=== PATIENT | female | born 1955 | race Two or more races ===

== ENCOUNTER 2022-10-15 08:28 | Inpatient (IN) | payer OTHER ==
[~2022-10-15] VITALS: Ht 160 cm; Wt 66.5 kg
[2022-10-15 05:36] VITALS: BP 136/94
[2022-10-15 08:54] LABS: Basophils # (auto) 0.1 10 ^3/uL (0-0.2); Basophils % (auto) 0.7 % (0.0-2.0); Eosinophils # (auto) 0.5 10 ^3/uL (0-0.8); Eosinophils % (auto) 5.3 % (0.0-7.0); Hematocrit 42.1 % (36.0-46.0); Hemoglobin 14.3 g/dL (12.2-16.2); Lymphocytes # (auto) 3.2 10 ^3/uL (0.4-5.4); Lymphocytes % (auto) 34.5 % (10.0-50.0); Mean Corpuscular Hemoglobin 30.6 pg (28.0-32.0); Mean Corpuscular Volume 89.9 fL (80.0-100.0); Monocytes # (auto) 0.6 10 ^3/uL (0-1.3); Monocytes % (auto) 6.5 % (0.0-12.0); Neutrophils # (auto) 4.9 10 ^3/uL (1.6-8.6); Nucleated Red Blood Cells % 0.2 %; Red Blood Cells 4.68 10^6/uL (4.0-5.20); Red Cell Distribution Width 13.2 % (11.8-14.3); White Blood Cell 9.2 10^3/uL (4.4-10.8)
[2022-10-15 09:26] LABS: Albumin 4.2 g/dL (3.4-5.0); Calcium 8.9 mg/dL (8.5-10.1); Magnesium 2.1 mg/dL (1.6-2.6)
[2022-10-15 09:29] LABS: BUN/Creatinine Ratio 18.8 (10.0-20.0); Bilirubin, Total 1.5 mg/dL (0.2-1.0); Total Protein 7.6 g/dL (6.4-8.2)
[2022-10-15] MEDS ORDERED: HEPARIN SODIUM (PORCINE) 5000 UNITS/ML 1ML VIAL IV ONE (09:45)
[2022-10-15] MEDS ORDERED: NITROGLYCERIN 0.4 MG SL TAB SL ONE (09:45)
[2022-10-15] MEDS ORDERED: HEPARIN DRIP/D5W 100UNITS/ML 250 ML IV SCH (10:45)
[2022-10-15 10:56] LABS: INR 0.92 (0.9-1.15); Partial Thromboplastin Time 27.3 sec (24.6-33.4)
[2022-10-15 11:52] LABS: Urine Bacteria FEW /hpf (None Seen); Urine Blood Negative /uL (Negative); Urine Specific Gravity 1.011 (1.001-1.035); Urine WBC 2 /hpf (0 - 5)
[2022-10-15] MEDS ORDERED: MORPHINE SULFATE INJ 2 MG/ml SYRG IV PRN (12:15)
[2022-10-15] MEDS ORDERED: GABA-339 PO (12:24)
[2022-10-15] MEDS: GABAPENTIN 300 MG CAP PO SCH ×2 (14:00→23:42)
[2022-10-15] MEDS ORDERED: ANGIOMAX 250 MG VIAL IV ONE (16:55)
[2022-10-15] MEDS ORDERED: fentaNYL CITRATE 100 MCG/2 ML VL ONE (16:55)
[2022-10-15] MEDS ORDERED: MIDAZOLAM HCL 2MG/2ML 2ml VIAL (1mg/ml) ONE (16:55)
[2022-10-15] MEDS ORDERED: IODIXANOL 320MG/ML 100ML BTL IV ONE (16:56)
[2022-10-15] MEDS ORDERED: LIDOCAINE 2%HCL (LOCAL ANESTH.) INJ 20ML MDV ONE (16:56)
[2022-10-15] MEDS ORDERED: SODIUM CHL 0.9% 0 ML ONE (16:56)
[2022-10-15] MEDS ORDERED: VERAPAMIL 2.5MG/ML INJ 2ML VIAL IV ONE (16:57)
[2022-10-15] MEDS ORDERED: diphenhdrAMINE HCL 50 MG/1 ML VL ONE (17:05)
[2022-10-15] MEDS ORDERED: HEPARIN 1,000 UNITS/ml 1ML VIAL ONE (17:30)
[2022-10-15] MEDS ORDERED: HEPARIN SODIUM (PORCINE) 5000 UNITS/ML 1ML VIAL ONE (17:33)
[2022-10-15] MEDS ORDERED: FUROSEMIDE 40 MG/4 ML VIAL IV ONE (17:45)
[2022-10-15 17:51] VITALS: BP 116/87
[2022-10-15 18:06] VITALS: BP 127/91
[2022-10-15 18:21] VITALS: BP 129/93
[2022-10-15 18:28] VITALS: BP 118/82
[2022-10-15 18:30] VITALS: BP 131/75
[2022-10-15] MEDS ORDERED: PRAV20TA3 PO (19:33)
[2022-10-15 19:49] LABS: INR 0.98 (0.9-1.15); Partial Thromboplastin Time 34.2 sec (24.6-33.4)
[2022-10-15] MEDS: NITROGLYCERIN 0.4 MG SL TAB SL PRN ×3 (21:01→21:13)
[2022-10-15] MEDS: ATORVASTATIN 20 MG TAB PO SCH (22:00)
[2022-10-15] MEDS: CARVEDILOL 3.125 MG TAB PO SCH (23:42)
[2022-10-16] MEDS ORDERED: HYDROmorphone HCL 2 MG/ML VL/or syr IV ONE (01:15)
[2022-10-16] MEDS: cefTRIAXone 1GM/50ML D5W 50 ML IV SCH ×2 (01:32→21:13)
[2022-10-16] MEDS ORDERED: HYDROmorphone HCL 2 MG/ML VL/or syr IV PRN (02:30)
[2022-10-16] MEDS: SODIUM CHLORIDE 0.9% 1,000 ML IV SCH ×2 (02:41→14:54)
[2022-10-16 05:00] VITALS: BP 114/78
[2022-10-16] MEDS: GABAPENTIN 300 MG CAP PO SCH ×3 (05:33→21:12)
[2022-10-16 06:54] LABS: Basophils # (auto) 0 10 ^3/uL (0-0.2); Basophils % (auto) 0.2 % (0.0-2.0); Eosinophils # (auto) 0.1 10 ^3/uL (0-0.8); Eosinophils % (auto) 1.4 % (0.0-7.0); Hematocrit 39.3 % (36.0-46.0); Hemoglobin 13.7 g/dL (12.2-16.2); Lymphocytes # (auto) 1.5 10 ^3/uL (0.4-5.4); Lymphocytes % (auto) 16.9 % (10.0-50.0); Mean Corpuscular Hemoglobin 30.9 pg (28.0-32.0); Mean Corpuscular Hgb Conc. 34.8 g/dL (32.0-36.0); Mean Corpuscular Volume 88.6 fL (80.0-100.0); Monocytes # (auto) 0.7 10 ^3/uL (0-1.3); Monocytes % (auto) 7.5 % (0.0-12.0); Neutrophils # (auto) 6.7 10 ^3/uL (1.6-8.6); Nucleated Red Blood Cells % 0.1 %; Red Blood Cells 4.43 10^6/uL (4.0-5.20); Red Cell Distribution Width 13.1 % (11.8-14.3)
[2022-10-16 07:08] LABS: Albumin 3.7 g/dL (3.4-5.0); Calcium 8.8 mg/dL (8.5-10.1); Potassium 3.8 mmol/L (3.5-5.1)
[2022-10-16 07:12] LABS: BUN/Creatinine Ratio 19.6 (10.0-20.0); Bilirubin, Total 1.6 mg/dL (0.2-1.0); Total Protein 7.3 g/dL (6.4-8.2)
[2022-10-16 08:00] VITALS: BP 119/79
[2022-10-16] MEDS ORDERED: IOHEXOL 350 MG/ML 100ML IJ ONE (08:49)
[2022-10-16 09:00] VITALS: BP 119/79
[2022-10-16] MEDS: CARVEDILOL 3.125 MG TAB PO SCH ×2 (11:01→21:24)
[2022-10-16] MEDS: CLOPIDOGREL BISULFATE 75 MG TAB PO SCH (11:01)
[2022-10-16] MEDS: ASPirin-EC 81 mg tab PO SCH (11:01)
[2022-10-16 12:44] VITALS: BP 118/65
[2022-10-16] MEDS ORDERED: LORazepam 0.5 MG TAB PO ONE (13:30)
[2022-10-16] MEDS ORDERED: ONDANSETRON HCL 4 MG/2 ML VIAL IV PRN (13:30)
[2022-10-16] MEDS: PANTOPRAZOLE 40 MG/10 ML VIAL INJ IV SCH (13:46)
[2022-10-16] MEDS: IBUPROFEN 600 MG TAB PO SCH ×2 (13:46→21:11)
[2022-10-16 17:00] VITALS: BP 107/64
[2022-10-16] MEDS: ATORVASTATIN 20 MG TAB PO SCH (21:12)
[2022-10-16 22:00] VITALS: BP 90/62
[2022-10-17 05:00] VITALS: BP 92/65
[2022-10-17] MEDS: GABAPENTIN 300 MG CAP PO SCH (05:12)
[2022-10-17] MEDS: IBUPROFEN 600 MG TAB PO SCH (05:18)
[2022-10-17 06:26] LABS: Basophils # (auto) 0 10 ^3/uL (0-0.2); Basophils % (auto) 0.3 % (0.0-2.0); Eosinophils # (auto) 0.3 10 ^3/uL (0-0.8); Eosinophils % (auto) 3.4 % (0.0-7.0); Hematocrit 43.5 % (36.0-46.0); Hemoglobin 15.2 g/dL (12.2-16.2); Lymphocytes # (auto) 2.5 10 ^3/uL (0.4-5.4); Lymphocytes % (auto) 29.2 % (10.0-50.0); Mean Corpuscular Hemoglobin 30.9 pg (28.0-32.0); Mean Corpuscular Hgb Conc. 34.9 g/dL (32.0-36.0); Mean Corpuscular Volume 88.6 fL (80.0-100.0); Monocytes # (auto) 0.7 10 ^3/uL (0-1.3); Monocytes % (auto) 8.1 % (0.0-12.0); Neutrophils # (auto) 5.1 10 ^3/uL (1.6-8.6); Nucleated Red Blood Cells % 0.2 %; Red Blood Cells 4.91 10^6/uL (4.0-5.20); Red Cell Distribution Width 13.2 % (11.8-14.3); White Blood Cell 8.7 10^3/uL (4.4-10.8)
[2022-10-17 06:32] LABS: Calcium 9.7 mg/dL (8.5-10.1); Potassium 3.5 mmol/L (3.5-5.1)
[2022-10-17 06:34] LABS: BUN/Creatinine Ratio 21.5 (10.0-20.0)
[2022-10-17 09:00] VITALS: BP 108/72
[2022-10-17] MEDS: CARVEDILOL 3.125 MG TAB PO SCH (10:00)
[2022-10-17] MEDS: PANTOPRAZOLE 40 MG/10 ML VIAL INJ IV SCH (10:02)
[2022-10-17] MEDS: CLOPIDOGREL BISULFATE 75 MG TAB PO SCH (10:02)
[2022-10-17] MEDS: ASPirin-EC 81 mg tab PO SCH (10:02)
[2022-10-17] MEDS ORDERED: CAR3125T PO (11:58)
[2022-10-17] MEDS ORDERED: CLOP75TA70 PO (11:58)
[2022-10-17] MEDS ORDERED: ATOR20TA50 PO (11:58)
[2022-10-17] MEDS ORDERED: ASPI-543 PO (11:58)
[2022-10-17 12:21] VITALS: BP 108/72
[2022-10-17 12:45] VITALS: BP 101/75
== END 2022-10-17 13:15 | disposition home or self-care (01) | DRG 280 ==
LOC: ER 08:28 → TELE 12:21 → TELE-WESTW 18:32
PROVIDERS: ADMIT Nurse Practitioner Family; ATTEND Internal Medicine
PROC: 4A023N7 Measurement of Cardiac Sampling and Pressure, Left Heart, Percutaneous Approach (ICD-10-PCS; principal; 2022-10-15)
PROC: B211YZZ Fluoroscopy of Multiple Coronary Arteries using Other Contrast (ICD-10-PCS; 2022-10-15)
PROC: B215YZZ Fluoroscopy of Left Heart using Other Contrast (ICD-10-PCS; 2022-10-15)
DX: I11.0 Hypertensive heart disease with heart failure (principal); I21.A1 Myocardial infarction type 2; I50.21 Acute systolic (congestive) heart failure; N30.00 Acute cystitis without hematuria; E78.5 Hyperlipidemia, unspecified; M79.7 Fibromyalgia; E66.9 Obesity, unspecified; R73.03 Prediabetes; Z88.8 Allergy status to other drugs, medicaments and biological substances; Z68.26 Body mass index [BMI] 26.0-26.9, adult
CPT/HCPCS: 36415; 71045; 71275; 80048; 80053; 80061; 81001; 82306; 83735; 84443; 84484; 85025; 85379; 85610; 85730; 93005; 93306; 93458; 96365; 96375; 99152; 99153; 99291; C9113; G0378; J0696; J2250; J2405; Q9967

== ENCOUNTER 2022-12-06 22:32 | Emergency (ER) | payer OTHER ==
[~2022-12-06] VITALS: Ht 160 cm; Wt 66.3 kg
[~2022-12-06 22:32] MED LIST: ASPI-543 PO; ATOR20TA50 PO; CAR3125T PO; CLOP75TA70 PO; GABA-339 PO
[2022-12-06] MEDS: IOHEXOL 350 MG/ML 100ML IJ ONE ×2 (22:55→23:35)
[2022-12-06 22:58] LABS: Basophils # (auto) 0.1 10 ^3/uL (0-0.2); Basophils % (auto) 0.9 % (0.0-2.0); Eosinophils # (auto) 0.4 10 ^3/uL (0-0.8); Eosinophils % (auto) 5.5 % (0.0-7.0); Hematocrit 37.2 % (36.0-46.0); Hemoglobin 12.5 g/dL (12.2-16.2); Lymphocytes # (auto) 2.1 10 ^3/uL (0.4-5.4); Mean Corpuscular Hemoglobin 29.9 pg (28.0-32.0); Mean Corpuscular Hgb Conc. 33.6 g/dL (32.0-36.0); Mean Corpuscular Volume 89.2 fL (80.0-100.0); Monocytes # (auto) 0.7 10 ^3/uL (0-1.3); Monocytes % (auto) 9.1 % (0.0-12.0); Neutrophils # (auto) 4.2 10 ^3/uL (1.6-8.6); Neutrophils % (auto) 56.5 % (37.0-80.0); Nucleated Red Blood Cells % 0.2 %; Red Blood Cells 4.17 10^6/uL (4.0-5.20); Red Cell Distribution Width 13.3 % (11.8-14.3); White Blood Cell 7.5 10^3/uL (4.4-10.8)
[2022-12-06 23:14] LABS: Calcium 8.8 mg/dL (8.5-10.1); INR 1.02 (0.9-1.15); Magnesium 2.3 mg/dL (1.6-2.6); Partial Thromboplastin Time 27.1 SEC (24.5-34.5); Potassium 3.6 mmol/L (3.5-5.1)
[2022-12-06 23:19] LABS: BUN/Creatinine Ratio 28.1 (10.0-20.0); Bilirubin, Total 1.5 mg/dL (0.2-1.0)
[2022-12-07] MEDS ORDERED: NITROGLYCERIN 0.4 MG SL TAB SL ONE
[2022-12-07] MEDS ORDERED: ASPirin 81 mg TAB PO ONE
[2022-12-07 03:21] VITALS: PULSE 68; RESP 19; TEMP 97.9; O2SAT 97
[2022-12-07 04:30] VITALS: BP 152/86; PULSE 78; RESP 20; O2SAT 98
== END 2022-12-07 06:42 | disposition short-term general hospital (02) ==
LOC: ER 22:33
DX: R07.9 Chest pain, unspecified (principal); E78.5 Hyperlipidemia, unspecified; Z98.51 Tubal ligation status; Z88.6 Allergy status to analgesic agent; Z20.822 Contact with and (suspected) exposure to COVID-19; Z79.899 Other long term (current) drug therapy
CPT/HCPCS: 36415; 71275; 80053; 83735; 83880; 84484; 85025; 85379; 85610; 85730; 87426; 93005; 99285; Q9967